=== PATIENT | male | born 1985 | race Native Hawaiian/Other Pacific Islander ===

== ENCOUNTER 2023-03-02 15:00 | Outpatient (RCR) | payer BC, SELFPAY | END 2023-03-02 16:00 | disposition home or self-care (01) | LOC: HO.PT 15:00 | PROVIDERS: PCP Physician Assistant; Visit Provider Internal Medicine Gastroenterology | DX: K59.02 Outlet dysfunction constipation (principal) | CPT/HCPCS: 97112; 97140; 97161; 97535 ==